=== PATIENT | female | born 1990 | race African-American/Black ===

== ENCOUNTER 2017-11-04 05:11 | Emergency (ER) | payer SELFPAY ==
[2017-11-04 05:31] VITALS: BMI 26.6
[2017-11-04] MEDS ORDERED: diazePAM 5 MG TABLET PO ONE (06:07)
[2017-11-04] MEDS ORDERED: KETOROLAC TROMETHAMINE 60 MG/2 ML VIAL IM ONE (06:07)
--- NOTE | 2017-11-04 06:20 | PDOC ---
History of Present Illness - General History Source: Patient Exam Limitations: No Limitations - History of Present Illness Initial Comments: 11/04/17 06:13 Patient is a 27-year-old female with history of asthma mild, cholecystectomy complaining of pain to the occiput and right hip, thigh and knee. Patient states this morning about 4:00 her ceiling fell grazing the back of her head. States she fell to the floor on her right knee. States now her pain is in her lower back and right hip, right thigh 9/10 and worse with movement. States has a soreness to the occiput. Initially they hit to the head caused dizziness and nausea, no vomiting, but there was no loss of consciousness. LMP 10/10/17 PMH: As above PSocHx: (+) cig 6/day, no etoh, no drugs ALL: NKDA GENERAL/CONSTITUTIONAL: [No fever or chills. No weakness. No weight change.] HEAD, EYES, EARS, NOSE AND THROAT: [No change in vision. No ear pain or discharge. No sore throat.] CARDIOVASCULAR: [No chest pain or shortness of breath.] RESPIRATORY: [No cough, wheezing, or hemoptysis.] GASTROINTESTINAL: [No nausea, vomiting, diarrhea or constipation. No rectal bleeding.] GENITOURINARY: [No dysuria, frequency, or change in urination.] MUSCULOSKELETAL: (+) joint or muscle swelling or pain. No neck (+) back pain.] SKIN AND BREASTS: [No rash or easy bruising.] NEUROLOGIC: [No headache, vertigo, loss of consciousness, or loss of sensation.] PSYCHIATRIC: [No depression or anxiety.] ENDOCRINE: [No increased thirst. No abnormal weight change.] HEMATOLOGIC/LYMPHATIC: [No anemia, easy bleeding, or history of blood clots.] ALLERGIC/IMMUNOLOGIC: [No hives or skin allergy. No latex allergy.] GENERAL: [The patient is awake, alert, and fully oriented, in no acute distress. ] HEAD: [Normal with (+) point tenderness to the occiput, no swelling noted. EYES: [Pupils equal, round and reactive to light, extraocular movements intact, sclera anicteric, conjunctiva clear.] ENT: [Ears normal, nares patent, oropharynx clear without exudates. Moist mucous membranes.] NECK: [Normal range of motion, supple without lymphadenopathy, JVD, or masses.] LUNGS: [Breath sounds equal, clear to auscultation bilaterally. No wheezes, and no crackles.] HEART: [Regular rate and rhythm, normal S1 and S2 without murmur, rub.] ABDOMEN: [Soft, nontender, normoactive bowel sounds. No guarding, no rebound. No masses.] EXTREMITIES: Decreased range of motion of the right knee and hip, tenderness to palp over right hip, right knee, (+) varus right knee, no edema. No clubbing or cyanosis. No cords, erythema, or tenderness.] BACK: Midline tenderness lumbar sacral spine NEUROLOGICAL: [Cranial nerves II through XII grossly intact. Normal speech, normal gait.] PSYCH: [Normal mood, normal affect.] SKIN: [Warm, Dry, normal turgor, no rashes or lesions noted.] <Hudson Ayala - Last Filed: 11/04/17 08:14> <Mckenzie Keenan - Last Filed: 11/04/17 09:47> - General Chief Complaint: Back Pain Stated Complaint: BACK PAIN Time Seen by Provider: 11/04/17 05:55 Past History - Suicide/Smoking/Psychosocial Hx Smoking History: Never smoked Have you smoked in the past 12 months: No Information on smoking cessation initiated: No Hx Alcohol Use: No Drug/Substance Use Hx: No <Hudson Ayala - Last Filed: 11/04/17 08:14> <Mckenzie Keenan - Last Filed: 11/04/17 09:47> - Past Medical History Allergies/Adverse Reactions: Allergies Allergy/AdvReac Type Severity Reaction Status Date / Time No Known Allergies Allergy Verified 11/04/17 05:16 Home Medications: Ambulatory Orders NK [No Known Home Medication] 11/04/17 *Physical Exam - Vital Signs Last Vital Signs Temp Pulse Resp BP Pulse Ox 97.3 F L 88 20 157/83 97 11/04/17 05:14 11/04/17 05:14 11/04/17 05:14 11/04/17 05:14 11/04/17 05:14 <Hudson Ayala - Last Filed: 11/04/17 08:14> - Vital Signs Last Vital Signs Temp Pulse Resp BP Pulse Ox 98.1 F 70 18 127/65 99 11/04/17 07:47 11/04/17 07:47 11/04/17 07:47 11/04/17 07:47 11/04/17 07:47 <Mckenzie Keenan - Last Filed: 11/04/17 09:47> ED Treatment Course - RADIOLOGY Radiology Studies Ordered: Category Date Time Status HIP & PELVIS-RIGHT [RAD] Stat Radiology 11/04/17 06:07 Ordered KNEE 3 POS-RIGHT [RAD] Stat Radiology 11/04/17 06:07 Ordered SPINE-LUMBAR SACRAL [RAD] Stat Radiology 11/04/17 06:07 Ordered <Hudson Ayala Last Filed: 11/04/17 08:14> - ADDITIONAL ORDERS Additional order review: Laboratory Results 11/04/17 07:52 Beta HCG, Quant < 1.0 - Medications Given in the ED: ED Medications Discontinued Medications Generic Name Dose Route Start Last Admin Trade Name Jovanniq PRN Reason Stop Dose Admin Diazepam 5 mg 11/04/17 06:07 11/04/17 06:33 Valium - PO 11/04/17 06:08 5 mg ONCE ONE Administration Ketorolac Tromethamine 60 mg 11/04/17 06:07 11/04/17 06:33 Toradol Injection - IM 11/04/17 06:08 60 mg ONCE ONE Administration <Mckenzie Keenan - Last Filed: 11/04/17 09:47> Medical Decision Making - Medical Decision Making 11/04/17 06:20 Patient is a 27-year-old female with history of asthma mild, cholecystectomy complaining of pain to the occiput and right hip, thigh and knee. Patient states this morning about 4:00 her ceiling fell grazing the back of her head. xray knee, pelvis/hip toradol 60mg IM for pain, valium 5mg po re-assess Endorsed to the day team pending ct head, xrays <Hudson Ayala Last Filed: 11/04/17 08:14> *DC/Admit/Observation/Transfer <Hudson Ayala Filed: 11/04/17 08:14> <Mckenzie Keenan - Last Filed: 11/04/17 09:47> Diagnosis at time of Disposition: Lower back injury Qualifiers: Encounter type: initial encounter Qualified Code(s): S39.92XA - Unspecified injury of lower back, initial encounter Closed head injury Qualifiers: Encounter type: initial encounter Qualified Code(s): S09.90XA - Unspecified injury of head, initial encounter - Discharge Dispostion Condition at time of disposition: Stable - Referrals Referrals: [facility] [Provider Group] [facility] [Provider Group] - Patient Instructions Additional Instructions: Your Discharge Instructions: You must call primary care physician within 24 hours to arrange follow-up. Return to the Emergency Department with any new, persistent or worsening symptoms, for fever, chills, SOB, dizziness or any other concerning changes that may occur. please take motrin as needed (over the counter) for any pain you must follow up with a neurologist to discuss your head ct done today, please bring a copy of the report with you
[2017-11-04] MEDS ORDERED: KETOROLAC TROMETHAMINE 60 MG/2 ML VIAL ONE (06:24)
[2017-11-04] MEDS ORDERED: diazePAM 5 MG TABLET ONE (06:24)
[2017-11-04 07:52] VITALS: TEMP 98.1
[2017-11-04 10:00] VITALS: BP 124/83; PULSE 18
== END 2017-11-04 10:00 | disposition home or self-care (01) ==
LOC: JER 05:11
DX: S09.8XXA Other specified injuries of head, initial encounter (principal); S39.82XA Other specified injuries of lower back, initial encounter; M79.604 Pain in right leg; W20.1XXA Struck by object due to collapse of building, initial encounter; Y93.89 Activity, other specified; Y92.038 Other place in apartment as the place of occurrence of the external cause; Y99.8 Other external cause status
CPT/HCPCS: 36415; 70450-TC; 72100-TC; 73523-TC; 73562-TC-RT; 84702; 99283-25

== ENCOUNTER 2018-10-29 17:02 | Emergency (ER) | payer SELFPAY ==
--- NOTE | 2018-10-29 17:33 | PDOC ---
Rapid Medical Evaluation Time Seen by Provider: 10/29/18 17:30 Medical Evaluation: Allergies Allergy/AdvReac Type Severity Reaction Status Date / Time No Known Allergies Allergy Verified 05/05/18 19:35 10/29/18 17:31 I have performed a brief in-person evaluation of this patient. The patient presents with a chief complaint of: right ankle pain s/p slip and fall 10/28/17 Pertinent physical exam findings: tenderness to navicular. unable to bear weight since injury I have ordered the following: xray The patient will proceed to the ED for further evaluation. Discharge Disposition - Diagnosis Right ankle pain - Referrals - Patient Instructions - Post Discharge Activity
[2018-10-29 17:34] VITALS: BP 138/92; PULSE 96; TEMP 98.6; BMI 42.6
--- NOTE | 2018-10-29 18:26 | PDOC ---
History of Present Illness - General Chief Complaint: Injury Stated Complaint: RT LEG INJURY Time Seen by Provider: 10/29/18 17:30 - History of Present Illness Initial Comments: 10/29/18 18:23 28-year-old female presents for evaluation of right foot pain times one day after a twisting injury yesterday Past History - Past Medical History Allergies/Adverse Reactions: Allergies Allergy/AdvReac Type Severity Reaction Status Date / Time No Known Allergies Allergy Verified 05/05/18 19:35 Home Medications: Ambulatory Orders NK [No Known Home Medication] 10/29/18 Asthma: Yes COPD: No - Surgical History Cholecystectomy: Yes - Immunization History Immunization Up to Date: Yes - Suicide/Smoking/Psychosocial Hx Smoking History: Current every day smoker Have you smoked in the past 12 months: No Number of Cigarettes Smoked Daily: 10 Information on smoking cessation initiated: No Hx Alcohol Use: No Drug/Substance Use Hx: No Substance Use Type: None Review of Systems - Review of Systems Musculoskeletal: Yes: See HPI, Joint Pain *Physical Exam - Vital Signs Last Vital Signs Temp Pulse Resp BP Pulse Ox 98.6 F 96 H 16 138/92 100 10/29/18 17:32 10/29/18 17:32 10/29/18 17:32 10/29/18 17:32 10/29/18 17:32 - Physical Exam Comments: 10/29/18 18:23 Right foot skin color and temperature are normal range of motion is limited of the ankle there is no tenderness about the knee and proximal fibula or along its distal coarse. No tenderness about the medial or lateral malleolus, navicular minimal tenderness over the base of the fifth metatarsal. There is moderate tenderness over the talus. No gross sensorimotor deficit she is neurovascularly intact. She is unable to tolerate stability testing. Moderate Sedation - Procedure Monitoring Vital Signs: Procedure Monitoring Vital Signs Temperature 98.6 F 10/29/18 17:32 Pulse Rate 96 H 10/29/18 17:32 Respiratory Rate 16 10/29/18 17:32 Blood Pressure 138/92 10/29/18 17:32 O2 Sat by Pulse Oximetry (%) 100 10/29/18 17:32 ED Treatment Course - RADIOLOGY Radiology Studies Ordered: Category Date Time Status LOWER EXTREMITY CT W/O CONTR [CT] Stat CT Scan 10/29/18 18:20 Ordered Medical Decision Making - Medical Decision Making 10/29/18 18:28 ? talus fx on raidograph, I will get CT 10/29/18 20:32 no fx or dislocation on CT *DC/Admit/Observation/Transfer Diagnosis at time of Disposition: Right ankle pain, Ankle sprain, Foot sprain - Discharge Dispostion Disposition: HOME Condition at time of disposition: Stable Decision to Admit order: No - Referrals Referrals: Fantasma Barbosa DO [Staff Physician] - - Patient Instructions Printed Discharge Instructions: DI for Foot Sprain, Ankle Sprain, DI for Ankle Sprain Additional Instructions: Your CAT scan was negative for fracture or dislocation. He may weight-bear as tolerated with the use of the Aircast and crutches. Please follow-up with orthopedic surgery in 2-3 days for further evaluation and treatment options. Return to the emergency room should symptoms worsen or go unresolved. Tylenol and Motrin as directed for pain and swelling. - Post Discharge Activity
== END 2018-10-29 21:00 | disposition home or self-care (01) ==
LOC: JERFT 17:02
PROC: 2W3QX1Z Immobilization of Right Lower Leg using Splint (ICD-10-PCS; principal; 2018-10-29)
DX: S93.401A Sprain of unspecified ligament of right ankle, initial encounter (principal); X58.XXXA Exposure to other specified factors, initial encounter; Y93.89 Activity, other specified; Y92.89 Other specified places as the place of occurrence of the external cause; S93.601A Unspecified sprain of right foot, initial encounter; F17.210 Nicotine dependence, cigarettes, uncomplicated; J45.909 Unspecified asthma, uncomplicated
CPT/HCPCS: 73610-TC-RT-FY; 73630-TC-RT-FY; 73700-TC-RT; 99282-25

== ENCOUNTER 2019-03-30 14:53 | Emergency (ER) | payer OTHER | END 2019-03-30 15:52 | disposition home or self-care (01) | LOC: JERFT 14:53 ==